=== PATIENT | male | born 1975 | race Caucasian/White ===

== ENCOUNTER 2023-06-01 09:05 | Emergency (ER) | payer OTHER, SELFPAY ==
--- NOTE | 2023-06-01 09:14 | ED.SKABFB ---
HPI - Skin/Abscess/Foreign Bdy General Chief complaint: Skin/Abscess/Foreign Body Stated complaint: Skin Irritation Middle Back Time Seen by Provider: 06/01/23 09:14 Source: patient Mode of arrival: ambulatory Limitations: no limitations History of Present Illness HPI narrative: Magdaleno is a 47-year-old male patient presenting to the clinic today with complaints of a possible infected cyst to the middle of his back. He reports he has had this cyst for about 15 years. Reports over the last 1-2 days it has become red and inflamed. He denies any fever or chills. Related Data Home Medications Medication Instructions Recorded Confirmed dextroamphetamine-amphetamine 20 06/01/23 mg tablet lamotrigine 200 mg tablet mg 06/01/23 lithium carbonate 450 mg mg PO 06/01/23 tablet,extended release quetiapine 100 mg tablet mg 06/01/23 Allergies Allergy/AdvReac Type Severity Reaction Status Date / Time No Known Allergies Allergy Verified 06/01/23 09:15 Review of Systems Review of Systems: Pertinent positives per HPI. Patient denies any fever, chills, rash, headache, visual changes, dizziness, cough, runny nose, sore throat, shortness of breath, chest pain, palpitations, nausea, vomiting, diarrhea, constipation, abdominal pain, or any urinary issues. PMFSH Comments At the time of my signature, I reviewed and agree with the nursing past medical, surgical, social, and family history. There is no relevant family history pertinent to the patient complaint. Exam Narrative: General: Well-developed, well nourished, in no apparent distress Head: Normocephalic, atraumatic. Cardio: Regular rate and rhythm, s1 and s2 normal, no murmur appreciated. Resp: Clear to auscultation bilaterally, no rhonchi, rales, wheezing or rubs. Integumentary: [place], warm, and dry, 6x4 cm infected sebaceous cyst with localized induration and redness. Course Course Emergency Course: Portions of this record may have been created with voice recognition software. Level of Care: Express Care Visit Vital Signs Vital signs: Vital signs reviewed Procedures Abscess I/D back: Date of Incision: 06/01/23 Amount of anesthesia used (mL): 4 Technique: incised with #11 blade Amount of fluid expressed (mL): 15 Irrigation: No Packing used?: iodoform (1/4 in) I&D Results: Pus (cyst contents) and Blood Abcess I&D Additional Comments: Verbal consent obtained for incision and drainage of infected sebaceous cyst. Risk and benefits explained and patient voiced understanding. Area was cleansed with betadine. Area was prepped and draped using sterile technique. 27 gauge needle was then used to instill 4 ml of lidocaine without epi into the wound edges. Patient tolerated well and anesthesia was appropriate. An 11 blade scalpel was then used to make a 1 cm incision over the cyst. White awake cyst contents and bloody exudate expressed from cavity. Part of the cyst sac was removed using hemostats. Wound culture obtained and sent to lab. Patient tolerated procedure well. MDM - Skin/Abscess/Foreign Bdy MDM Narrative Medical decision making narrative: At the time of visit patient is resting comfortably on the exam table. Patient appears to be nontoxic. Plan: Incision and drainage of infected sebaceous cyst was performed in the clinic today. Wound culture was obtained. Clindamycin prescription was sent to the pharmacy. Supportive measures were discussed with the patient and they voiced understanding discharge instructions and agrees to treatment plan. Return precautions reviewed Differential Diagnosis Differential diagnosis: Likely abscess of skin or subcutaneous tissue, cellulitis and other (Infected sebaceous cyst) Discharge Plan Discharge Clinical Impression: Infected sebaceous cyst of skin Patient Disposition: Home, Self-Care Condition: Stable Instructions: Antibiotic Form, Cyst (ED), A
[2023-06-01 09:15] VITALS: BP 117/75; PULSE 71; RESP 18; TEMP 36.7; O2SAT 98
[2023-06-01 09:16] VITALS: BP 117/75; PULSE 71; RESP 18; TEMP 36.7; O2SAT 98
[2023-06-01] MEDS: LIDOCAINE HCL 1% LOCAL INJ 2 ML AMPUL 4 ML INFILTRATE (09:29)
== END 2023-06-01 10:02 | disposition home or self-care (01) ==
PROVIDERS: Emergency Provider Nurse Practitioner Family; PCP Emergency Medicine
DX: L72.3 Sebaceous cyst (principal); Z79.899 Other long term (current) drug therapy
CPT/HCPCS: 10060; 87070; 87075; 87076; 87205; 99213; G0463

== ENCOUNTER 2023-06-05 11:59 | Emergency (ER) | payer OTHER, SELFPAY ==
[2023-06-05 12:15] VITALS: BP 107/83; PULSE 65; RESP 16; TEMP 36.7; O2SAT 100
[2023-06-05 12:24] VITALS: BP 107/83; PULSE 65; RESP 16; TEMP 36.7; O2SAT 100
--- NOTE | 2023-06-05 12:25 | ED.SKABFB ---
HPI - Skin/Abscess/Foreign Bdy General Chief complaint: Skin/Abscess/Foreign Body Stated complaint: wound check Time Seen by Provider: 06/05/23 12:27 Source: patient Mode of arrival: ambulatory Limitations: no limitations History of Present Illness HPI narrative: 47-year-old male presented for packing to be removed on the right mid back after I and D was performed on 06/01/2023. Patient has been taking clindamycin as prescribed and denies any complications or pain. Related Data Home Medications Medication Instructions Recorded Confirmed dextroamphetamine-amphetamine 20 06/01/23 mg tablet lamotrigine 200 mg tablet mg 06/01/23 lithium carbonate 450 mg mg PO 06/01/23 tablet,extended release quetiapine 100 mg tablet mg 06/01/23 Allergies Allergy/AdvReac Type Severity Reaction Status Date / Time No Known Allergies Allergy Verified 06/05/23 12:24 Review of Systems Review of Systems: CONSTITUTIONAL: Denies body aches, fever, chills, or sweats. EYES: Denies visual changes, redness, or discharge. ENT: Denies rhinorrhea, congestion CARDIOVASCULAR: Denies chest pain, palpitations, or edema. RESPIRATORY: Denies cough or dyspnea. GASTROINTESTINAL: Denies abdominal pain, nausea, vomiting, or diarrhea. SKIN: Packing to wound on the right mid back MUSCULOSKELETAL: Denies back pain, joint pain, or myalgia. NEUROLOGIC: Denies headache, numbness, tingling, or weakness. PMFSH Comments At time of signature, I have reviewed and agree with nursing past medical, surgical, social and family history unless otherwise noted. Please see nursing chart for further information. There is no relevant family history pertinent to the presenting complaint Exam Narrative: General: Well-developed, well nourished, in no apparent distress Head: Normocephalic, atraumatic. Cardio: Regular rate and rhythm Resp: Clear to auscultation bilaterally, no rhonchi, rales, wheezing or rubs. Integumentary: [place], warm, and dry, 3x2 cm area of minimal erythema, packing removed without difficulty. Moderate amount of purulent drainage noted to the dressing Course Course Emergency Course: Patient is aware of diagnosis, understands and agrees to treatment plan. Anticipatory guidance given. Patient agrees to follow-up as directed and is aware of reasons to seek care at the emergency department. Portions of this record may have been created with voice recognition software Level of Care: Express Care Visit Vital Signs Vital signs: Vital Signs Temperature 98.1 F 06/05/23 12:15 Pulse Rate 65 06/05/23 12:15 Respiratory Rate 16 06/05/23 12:15 Blood Pressure 107/83 06/05/23 12:15 Pulse Oximetry 100 06/05/23 12:15 Oxygen Delivery Room Air 06/05/23 12:15 Temperature 98.1 F 06/05/23 12:24 Pulse Rate 65 06/05/23 12:24 Respiratory Rate 16 06/05/23 12:24 Blood Pressure 107/83 06/05/23 12:24 Pulse Oximetry 100 06/05/23 12:24 Oxygen Delivery Room Air 06/05/23 12:24 Reviewed MDM - Skin/Abscess/Foreign Bdy MDM Narrative Medical decision making narrative: packing removed from the I&D site on right mid back without difficulty. Instructed patient to go to nearest ER immediately for any worsening symptoms including but not limited to: fever, spreading rash, pain, sore throat, headache, dizziness, chest pain, trouble breathing, or any symptoms concerning to the patient. Differential Diagnosis Differential diagnosis: Likely abscess of skin or subcutaneous tissue, urticaria, herpes zoster, cellulitis and contact dermatitis Discharge Plan Discharge Clinical Impression: Encounter for wound re-check Patient Disposition: Home, Self-Care Condition: Stable Instructions: Antibiotic Form, Abscess (ED) Additional Instructions: Packing was removed from the incision today. The site will heal from the inside Take clindamycin as prescribed previously Take Tylenol/Motrin as needed for pain Keep
== END 2023-06-05 12:38 | disposition home or self-care (01) ==
PROVIDERS: Emergency Provider Nurse Practitioner Family; PCP Emergency Medicine
DX: Z48.01 Encounter for change or removal of surgical wound dressing (principal); K21.9 Gastro-esophageal reflux disease without esophagitis; G62.9 Polyneuropathy, unspecified; Z85.828 Personal history of other malignant neoplasm of skin
CPT/HCPCS: 99211; G0463